=== PATIENT | female | born 1980 | race Caucasian/White ===

== ENCOUNTER 2018-09-27 18:00 | Inpatient (IN) | payer BC ==
[2018-09-27] MEDS ORDERED: OXYTOCIN 30 UNITS in 0.9% NS 30 UNIT/500 ML INFUS.BAG IVPB ONE (21:03)
[2018-09-27] MEDS ORDERED: AMPICILLIN SODIUM 2 GM VIAL ONE (21:03)
[2018-09-27] MEDS ORDERED: AMPICILLIN - 2 GM in SODIUM CHLORIDE 100 ML IVPB ONE (21:04)
--- NOTE | 2018-09-27 21:04 | HP ---
Past Medical History - Primary Care Physician PCP:: Erika Sawant - Admission Chief Complaint: 37yo P1 @ 38.4 wks with LOF clear since 09/24/18 18:00, no VB, some contructions, +FM. CORI =7, office Nitrosine positive History of Present Illness: 1. AMA - Materni 21 nl XY 2. h/o Appendectomy 3. Fibroid 2.6cm 4. Hyperemesis this - multiple meds including Omeprazole 5. Flu shot and Tdap this 6. GBS 09/10/19 positive History Source: Patient Limitations to Obtaining History: No Limitations - Past Medical History ...: 4 ...Para: 1 ...Term: 1 ...Spon : 2 ...LMP: 12/30/17 ... Weeks Gestation by Dates: 38.3 ...EDC by Dates: 10/08/18 ...EDC by Sono: 10/07/18 - Past Surgical History Past Surgical History: Yes: Appendectomy Hx Myomectomy: No Hx Transabdominal Cerclage: No - Smoking History Have you smoked in the past 12 months: No Home Medications - Allergies Allergies/Adverse Reactions: Allergies Allergy/AdvReac Type Severity Reaction Status Date / Time No Known Allergies Allergy Verified 09/27/18 18:19 - Home Medications Home Medications: Ambulatory Orders Pnv,Calcium 72/Iron/Folic Acid [ Plus Tablet] 1 tab PO DAILY 09/27/18 Review of Systems - Review of Systems Constitutional: reports: No Symptoms Eyes: reports: No Symptoms HENT: reports: No Symptoms Neck: reports: No Symptoms Cardiovascular: reports: No Symptoms Respiratory: reports: No Symptoms Gastrointestinal: reports: No Symptoms Genitourinary: reports: No Symptoms Breasts: reports: No Symptoms Reported Musculoskeletal: reports: No Symptoms Integumentary: reports: No Symptoms Neurological: reports: No Symptoms Endocrine: reports: No Symptoms Hematology/Lymphatic: reports: No Symptoms Psychiatric: reports: No Symptoms Physical Exam - Maternity Vital Signs: Vital Signs Temperature 98.0 F 09/27/18 18:27 Pulse Rate 74 09/27/18 18:27 Respiratory Rate 20 09/27/18 18:27 Blood Pressure 117/69 09/27/18 18:27 O2 Sat by Pulse Oximetry (%) Constitutional: Yes: Well Nourished, No Distress, Calm Eyes: Yes: WNL HENT: Yes: WNL, Atraumatic, Normocephalic Neck: Yes: WNL, Supple, Trachea Midline Cardiovascular: Yes: WNL, Regular Rate and Rhythm Lungs: Clear to auscultation Breast(s): Yes: WNL - Abdominal Exam/OB Fundal Height: 39 (EFW 7.5lb) Number of Fetuses: Single Presentation: Vertex Contractions: Yes Regularity: Irregular Intensity: Mild Monitor Mode: External Heart Rate (range): 130 Heart Rate Location: Midline Category: I Accelerations: None Decelerations: None - Vaginal Exam/OB Vaginal Bleediing: No Speculum Exam: Yes Dilatation (cm): 2-3 Effacement (%): 50% Nitrazine Test: Positive Amniotic Fluid: Yes: Clear Presentation: Vertex/Position Station: -3 - Physical Exam Musculoskeletal: Yes: WNL Extremities: Yes: WNL Integumentary: Yes: WNL Deep Tendon Reflex Grade: Normal +2 ...Motor Strength: WNL Psychiatric: Yes: WNL, Alert, Oriented - Labs Lab Results: Bpos/RI/NR/HIV neg/HepB neg/GCT-101/GBS - pos Assessment/Plan 37yo P1 @ 38.4wks with prolonged PROM currently no s/s of infection Admit to L&D IVF,Labs,NPO Ampicillin/Gentamycis for GBS and prolonged PROM prophylaxis will augment with Pitocin since favorable cervix current MF status reasuring EFW 7.5lb, adequate pelvis All questions answered Pain meds as needed
[2018-09-27 21:14] LABS: BASO % 0.5 % (0-2.0); HEMATOCRIT 30.9 % (32.4-45.2); HEMOGLOBIN 10.5 GM/dL (10.7-15.3); LYMPH % 26.8 % (8-40); MCHC 34.1 g/dl (32.0-36.0); MEAN PLT VOLUME 8.7 fl (7.5-11.1); MONO % 4.1 % (3.8-10.2); NEUT % 67.6 % (42.8-82.8); PLATELET COUNT 226 K/MM3 (134-434); RBC 3.64 M/mm3 (3.60-5.2); RDW 14.4 % (11.6-15.6); WHITE BLOOD COUNT 6.9 K/mm3 (4.0-10.0)
[2018-09-27 21:15] LABS: INR 0.9 (0.83-1.09); PROTHROMBIN TIME (PATIENT) 10.6 SEC (9.7-13.0)
[2018-09-27] MEDS ORDERED: OXYTOCIN 30 UNITS in 0.9% NS 30 UNIT/500 ML INFUS.BAG IVPB SCH (21:15)
[2018-09-27] MEDS ORDERED: ELECTROLYTE-148 SOLN 1,000 ML IV SCH (21:15)
[2018-09-27] MEDS ORDERED: DEXTROSE 5%-LACTATED RINGERS 1,000 ML IV SCH (21:30)
[2018-09-27] MEDS ORDERED: TUBERCULIN PPD 5 TU/0.1ML SYRINGE (IN PATIENT USE ONLY) ID ONE (21:30)
[2018-09-27 21:43] LABS: ANION GAP 9 MMOL/L (8-16); BLOOD UREA NITROGEN 6 mg/dL (7-18); CALCIUM 8.7 mg/dL (8.5-10.1); CHLORIDE 107 mmol/L (98-107); CO2 22 mmol/L (21-32); CREATININE 0.6 mg/dL (0.55-1.3); GLUCOSE,RANDOM 129 mg/dL (74-106); SODIUM 138 mmol/L (136-145)
[2018-09-27 22:04] VITALS: BMI 26.4
[2018-09-28] MEDS ORDERED: AMPICILLIN SODIUM 1 GM VIAL ONE ×2 (01:02→05:10)
[2018-09-28] MEDS: AMPICILLIN - 1 GM in SODIUM CHLORIDE 100 ML IVPB SCH ×3 (01:05→09:44)
[2018-09-28] MEDS ORDERED: PROMETHAZINE HCL 25 MG/1 ML VIAL ONE (04:18)
[2018-09-28] MEDS ORDERED: BUTORPHANOL TARTRATE 1 MG/ML VIAL ONE ×2 (04:18)
[2018-09-28] MEDS ORDERED: BUTORPHANOL TARTRATE 1 MG/ML VIAL IVPUSH ONE (04:23)
[2018-09-28] MEDS ORDERED: PROMETHAZINE HCL 25 MG/1 ML VIAL IVPUSH ONE (04:23)
--- NOTE | 2018-09-28 04:46 | PN ---
Progress Note, Labor Vaginal Exam #1 Labor Exam Date: 09/28/18 Labor Exam Time: 04:00 Heart Rate (range): 130's Category 1 Dilatation: 3 Effacement (%): 50 Amniotic Membrane Status: Ruptured Presentation: Vertex/Position Station: -3 (She is uncomfortable on Pitocin 11 MU/min Reassuring MF status recommended Stadol/Phenergan)
[2018-09-28] MEDS ORDERED: GENTAMICIN 80 MG PREMIXED IVPB 80 MG/100 ML BAG IVPB ONE (05:00)
[2018-09-28] MEDS ORDERED: FENTANYL/BUPIVACAINE/NS/PF - PCEA - 50 ML DISP.SYRIN EP ONE (05:54)
[2018-09-28] MEDS ORDERED: BUPIVACAINE HCL/PF 0.25% (2.5MG/ML) 10 ML VIAL ONE (06:06)
[2018-09-28] MEDS ORDERED: FENTANYL/BUPIVACAINE/NS/PF - PCEA - 50 ML DISP.SYRIN EP SCH (07:00)
[2018-09-28] MEDS ORDERED: NALOXONE HCL 0.4 MG/ML VIAL IVPUSH PRN (07:00)
[2018-09-28] MEDS ORDERED: OXYTOCIN 20 UNITS in 0.9% NS 20 UNIT/1,000 ML INFUS.BAG IV ONE (08:53)
--- NOTE | 2018-09-28 08:58 | PN ---
Delivery - Delivery Vaginal Delivery: No Problems Type of Anesthesia: Epidural Episiotomy/Laceration: None EBL (cc): 200 Delivery, Single - Stages of Labor Date 1st Stage Initiatied: 09/28/18 Time 1st Stage Initiated: 02:00 Date 2nd Stage Initiated: 09/28/18 Time 2nd Stage Initiated: 08:20 Date of Delivery: 09/28/18 Time of Delivery: 08:31 Date Placenta Delivered: 09/28/18 Time Placenta Delivered: 08:35 Placenta: Yes: Spontaneous - Condition of Cat Cracker Operator/Senior Data Modeler Present: No Gender: Male Weight: 7 lb Position: Left, OA Total Hours ROM (Hrs/Mins): 86.35 - 1 Minute Total Score: 9 5 Minutes Total Score: 9 - [place] Feeding Plan Initial Plan: Exclusive throughout hospitalization Benefits of Exclusively reinforced: Yes Remarks - Remarks Remarks: Cord around the neck x 2, reduced without difficulty head and neck delivered without difficulty
[2018-09-28] MEDS ORDERED: METHYLERGONOVINE MALEATE 0.2 MG/1 ML AMP IM PRN (09:00)
[2018-09-28] MEDS ORDERED: ACETAMINOPHEN 325 MG TABLET (FP) PO PRN (09:00)
[2018-09-28] MEDS ORDERED: IBUPROFEN 600 MG TABLET (FP) PO PRN (09:00)
[2018-09-28] MEDS ORDERED: BENZOCAINE 20% 57 GM BOTTLE TP PRN (09:00)
[2018-09-28] MEDS ORDERED: D5W-LR W/ 20 UNITS OXYTOCIN 20 UNIT/1,000 ML INFUS.BAG IV SCH (09:00)
[2018-09-28] MEDS ORDERED: WITCH HAZEL 50% (TUCKS) 40 PAD/JAR PAD TP PRN (09:00)
[2018-09-28] MEDS ORDERED: BISACODYL 10 MG SUPP.RECT RC PRN (09:00)
[2018-09-28] MEDS ORDERED: BENZOCAINE 28 GM HEMORRHOIDAL OINTMENT TP PRN (09:00)
[2018-09-28 09:09] LABS: ARTERIAL BLD GAS O2 SATURATION 17.2 % (90-98.9); ARTERIAL BLOOD GAS BASE EXCESS -4.6 meq/l (-2-2); ARTERIAL BLOOD GAS PCO2 66.5 mmHg (35-45); ARTERIAL BLOOD GAS PO2 16.4 mmHg (80-100); ARTERIAL BLOOD GAS pH 7.19 (7.35-7.45)
[2018-09-28 09:15] LABS: VENOUS PC02 50.6 mmHg (38-52); VENOUS PH 7.28 (7.32-7.42); VENOUS PO2 17.2 mmHg (28-48)
[2018-09-28] MEDS: PRENATAL VITAMINS W/ FOLIC ACID TABLET (FP) PO SCH (10:22)
[2018-09-28] MEDS: FERROUS SO4 325 MG TABLET (FP) PO SCH ×2 (10:23→22:31)
[2018-09-29 07:30] LABS: BASO % 0.6 % (0-2.0); EOS % 1.7 % (0-4.5); HEMATOCRIT 29.7 % (32.4-45.2); HEMOGLOBIN 9.9 GM/dL (10.7-15.3); LYMPH % 25.7 % (8-40); MCH 28.8 pg (25.7-33.7); MCHC 33.3 g/dl (32.0-36.0); MEAN CELL VOLUME 86.4 fl (80-96); MEAN PLT VOLUME 8.4 fl (7.5-11.1); MONO % 5.8 % (3.8-10.2); NEUT % 66.2 % (42.8-82.8); PLATELET COUNT 192 K/MM3 (134-434); RBC 3.44 M/mm3 (3.60-5.2); RDW 15.1 % (11.6-15.6); WHITE BLOOD COUNT 8.6 K/mm3 (4.0-10.0)
[2018-09-29] MEDS: PRENATAL VITAMINS W/ FOLIC ACID TABLET (FP) PO SCH (10:27)
[2018-09-29] MEDS: FERROUS SO4 325 MG TABLET (FP) PO SCH ×2 (10:27→21:55)
--- NOTE | 2018-09-29 13:16 | PN ---
Post Progress Note - Subjective Subjective: No complains Post Day: 1 Type of Delivery: Vital Signs: Vital Signs Temperature 98.9 F 09/29/18 09:20 Pulse Rate 76 09/29/18 09:20 Respiratory Rate 20 09/29/18 09:20 Blood Pressure 99/66 09/29/18 09:20 O2 Sat by Pulse Oximetry (%) 100 09/28/18 09:45 Breast Exam: Yes: Soft Uterus: Yes: Fundus Firm Abdomen/GI: Yes: Abdomen soft Lochia: Yes: Rubra Lochia, amount: Small Extremities: Yes: Calves non-tender Perineum: Yes: Intact Activity: Ambulating - Labs Labs: CBC WBC 8.6 K/mm3 (4.0-10.0) 09/29/18 06:45 RBC 3.44 M/mm3 (3.60-5.2) L 09/29/18 06:45 Hgb 9.9 GM/dL (10.7-15.3) L 09/29/18 06:45 Hct 29.7 % (32.4-45.2) L 09/29/18 06:45 MCV 86.4 fl (80-96) 09/29/18 06:45 MCH 28.8 pg (25.7-33.7) 09/29/18 06:45 MCHC 33.3 g/dl (32.0-36.0) 09/29/18 06:45 RDW 15.1 % (11.6-15.6) 09/29/18 06:45 Plt Count 192 K/MM3 (134-434) 09/29/18 06:45 MPV 8.4 fl (7.5-11.1) 09/29/18 06:45 Absolute Neuts (auto) 5.7 K/mm3 (1.5-8.0) 09/29/18 06:45 Neutrophils % 66.2 % (42.8-82.8) 09/29/18 06:45 Lymphocytes % 25.7 % (8-40) 09/29/18 06:45 Monocytes % 5.8 % (3.8-10.2) 09/29/18 06:45 Eosinophils % 1.7 % (0-4.5) 09/29/18 06:45 Basophils % 0.6 % (0-2.0) 09/29/18 06:45 Nucleated RBC % 0 % (0-0) 09/29/18 06:45 Assessment/Plan 37yo P2 s/p doing well VSS, Afebrile labs wnl plan to d/c home NPV x 6wks
--- NOTE | 2018-09-29 19:57 | DS ---
Physical Exam-INTERNSHIP COORDINATOR Vital Signs: Vital Signs Temperature 98.9 F 09/29/18 09:20 Pulse Rate 76 09/29/18 09:20 Respiratory Rate 20 09/29/18 09:20 Blood Pressure 99/66 09/29/18 09:20 O2 Sat by Pulse Oximetry (%) 100 09/28/18 09:45 Constitutional: Yes: Well Nourished, No Distress, Calm Eyes: Yes: WNL HENT: Yes: WNL Neck: Yes: WNL, Supple, Trachea Midline Cardiovascular: Yes: WNL, Regular Rate and Rhythm Respiratory: Yes: WNL, Regular, CTA Bilaterally Gastrointestinal: Yes: WNL, Normal Bowel Sounds, Soft ...Rectal Exam: Yes: WNL Renal/: Yes: WNL Pelvis: Yes: WNL External Genitalia: Yes: Normal Vaginal Exam: Yes: Normal Cervix: Yes: Normal Uterus: Yes: Normal ....Post : Yes: Uterus firm, Uterus non-tender Breast(s): Yes: WNL Musculoskeletal: Yes: WNL Extremities: Yes: WNL Integumentary: Yes: WNL Neurological: Yes: WNL, Alert, Oriented ...Motor Strength: WNL Psychiatric: Yes: WNL, Alert, Oriented Labs: CBC, BMP 09/29/18 06:45 09/27/18 20:30 Delivery - Delivery Vaginal Delivery: No Problems Type of Anesthesia: Epidural Episiotomy/Laceration: None EBL (cc): 200 Delivery, Single - Stages of Labor Date 1st Stage Initiatied: 09/28/18 Time 1st Stage Initiated: 02:00 Date 2nd Stage Initiated: 09/28/18 Time 2nd Stage Initiated: 08:20 Date of Delivery: 09/28/18 Time of Delivery: 08:31 Time Placenta Delivered: 08:35 Placenta: Yes: Spontaneous - Condition of Infant Fibreglass Gun Hand/Blow Pit Helper Present: No Infant Gender: Male Weight: 7 lb Position: Left, OA Total Hours ROM (Hrs/Mins): 86.35 - 1 Minute Total Score: 9 5 Minutes Total Score: 9 - Feeding Plan Initial Plan: Exclusive throughout hospitalization Benefits of Exclusively reinforced: Yes Discharge Summary Reason For Visit: LABOR Prolonged rupture of membranes cord around the neck x 2 Procedures: Principal: Normal vavinal delivery Other Procedures: Induction of labor Condition: Good - Instructions Diet, Activity, Other Instructions: Physical activity Resume your normal everyday activity as tolerated no heavy lifting or exercise until seen by your surgeon. You may walk [place] of and climb stairs. You may resume driving the car when you feel safe and comfortable behind the wheel. No sexual activity as instructed. Wound care If you have a bandage, leave it on, and keep dry for 48-72 hours. After that time discard the outer bandage. If they are tapes on the skin under the out of bandage leave them in place. They will peel off in the next 7 to 10 days. Do Not Peel them off. You may shower the day after surgery. If there are tapes present on the skin, you may shower over them. Diet There are no dietary restrictions. Eat healthy, high-fiber foods. Drink 6 to 8 glasses of liquid each day. This will assist in keeping your bowels are regular. Pain management You may take Tylenol or acetaminophen or Ibuprofen (for example, Motrin, Advil etc.) from my pain prescription medication is ordered should be taken as prescribed for moderate to severe pain. Call MD for any of the following: Severe pain not relieved by medication Fever of 101 or higher Excessive bleeding or drainage on dressing Inability to urinate Referrals: Erika Sawant MD [Staff Physician] - Disposition: HOME - Home Medications Comprehensive Discharge Medication List: Ambulatory Orders Pnv,Calcium 72/Iron/Folic Acid [ Plus Tablet] 1 tab PO DAILY 09/27/18
[2018-09-29] MEDS ORDERED: SENNOSIDES/DOCUSATE COMBO (SENNA PLUS) TABLET (UD) PO PRN (22:00)
--- NOTE | 2018-09-30 07:10 | PN ---
Post Progress Note - Subjective Subjective: Patient without acute complaints. Reports tolerating oral intake without nausea or vomiting. Ambulating without dizziness. Denies fevers or chills. Pain well controlled with oral pain medication. without difficulty. Passing flatus. Post Day: 2 Type of Delivery: Vital Signs: Vital Signs Temperature 98.6 F 09/29/18 22:00 Pulse Rate 79 09/29/18 22:00 Respiratory Rate 20 09/29/18 22:00 Blood Pressure 105/64 09/29/18 22:00 O2 Sat by Pulse Oximetry (%) 100 09/28/18 09:45 Breast Exam: Yes: Soft Uterus: Yes: Fundus Firm Abdomen/GI: Yes: Abdomen soft, Passing flatus, Tolerating PO. No: Abdominal Distention, Tender Lochia: Yes: Serosa Lochia, amount: Small Extremities: Yes: Calves non-tender, Edema (+1) Activity: Ambulating - Labs Labs: CBC WBC 8.6 K/mm3 (4.0-10.0) 09/29/18 06:45 RBC 3.44 M/mm3 (3.60-5.2) L 09/29/18 06:45 Hgb 9.9 GM/dL (10.7-15.3) L 09/29/18 06:45 Hct 29.7 % (32.4-45.2) L 09/29/18 06:45 MCV 86.4 fl (80-96) 09/29/18 06:45 MCH 28.8 pg (25.7-33.7) 09/29/18 06:45 MCHC 33.3 g/dl (32.0-36.0) 09/29/18 06:45 RDW 15.1 % (11.6-15.6) 09/29/18 06:45 Plt Count 192 K/MM3 (134-434) 09/29/18 06:45 MPV 8.4 fl (7.5-11.1) 09/29/18 06:45 Absolute Neuts (auto) 5.7 K/mm3 (1.5-8.0) 09/29/18 06:45 Neutrophils % 66.2 % (42.8-82.8) 09/29/18 06:45 Lymphocytes % 25.7 % (8-40) 09/29/18 06:45 Monocytes % 5.8 % (3.8-10.2) 09/29/18 06:45 Eosinophils % 1.7 % (0-4.5) 09/29/18 06:45 Basophils % 0.6 % (0-2.0) 09/29/18 06:45 Nucleated RBC % 0 % (0-0) 09/29/18 06:45 Assessment/Plan 37 yo PPD #2 s/p , afebrile, vital sign stable, mild asymptomatic anemia 1. Patient stable for discharge home today. 2. Patient encouraged to contact MD for: - Severe pain not controlled by oral pain medication - Fevers or chills - Nausea or vomiting, intolerance of oral intake 3. Patient to follow up in office in 4-6 weeks for visit
[2018-09-30 08:54] VITALS: BP 104/75; PULSE 73; TEMP 97.5
[2018-09-30] MEDS: FERROUS SO4 325 MG TABLET (FP) PO SCH (09:57)
[2018-09-30] MEDS: PRENATAL VITAMINS W/ FOLIC ACID TABLET (FP) PO SCH (09:57)
== END 2018-09-30 16:50 | disposition home or self-care (01) | DRG 807 ==
LOC: JDEL 18:00 → JLDR 19:40 → J3W 09-28 11:35
PROVIDERS: ADMIT Obstetrics & Gynecology; ATTEND Obstetrics & Gynecology
PROC: 10E0XZZ Delivery of Products of Conception, External Approach (ICD-10-PCS; principal; 2018-09-28)
DX: O42.92 Full-term premature rupture of membranes, unspecified as to length of time between rupture and onset of labor (principal); Z37.0 Single live birth; O99.02 Anemia complicating childbirth; D64.9 Anemia, unspecified; Z22.330 Carrier of Group B streptococcus; O34.13 Maternal care for benign tumor of corpus uteri, third trimester; D25.9 Leiomyoma of uterus, unspecified; O69.81X0 Labor and delivery complicated by cord around neck, without compression, not applicable or unspecified; Z3A.38 38 weeks gestation of pregnancy
CPT/HCPCS: 36415; 36600; 59409; 76819-TC; 80048; 82803; 85025; 85610; 85730; 86593; 86850; 86900; 86901; 87389